=== PATIENT | female | born 1935 | race Two or more races ===

== ENCOUNTER 2019-05-24 22:44 | Emergency (ER) | payer OTHER ==
[~2019-05-24] VITALS: Ht 165.1 cm; Wt 80.3 kg
[2019-05-24 22:55] VITALS: BP 119/56
--- NOTE | 2019-05-24 22:58 | NUR ---
TO LOBBY A/W BED VIA WHEELCHAIR
--- NOTE | 2019-05-25 00:42 | NUR ---
PT TAKEN TO BED 03 VIA WHEELCHAIR.
--- NOTE | 2019-05-25 00:48 | NUR ---
84 YEAR OLD FEMALE COMPLAINS OF SEVERE BACK PAIN THAT RADIATES TO THE LEFT FOOT. PATIENTS SON STATES THAT SHE USUALLY HAS PAIN IN THE MORNING BUT TODAY IT LINGERED THROUGHOUT THE DAY. SON STATES PT HAS HAD LOWER BACK PAIN THAT RADIATES TO LEFT FOOT FOR THE PAST 2 YEARS, BUT TODAY MUCH MORE SEVERE. PATIENT AOX4, BREATHING EVEN AND UNLABORED, SKIN WARM AND DRY. BED IN LOWEST POSIITON, LOCKED, BED RAIL UPX1. ERMD AWARE OF STATUS. PMH - PACEMAKER, DM2, HTN ALLERGIES - NKA
--- NOTE | 2019-05-25 01:30 | NUR ---
PATIENT ALERT AND AWAKE, BREAHTING EVEN AND UNLABORED
[2019-05-25] MEDS ORDERED: KETOROLAC 60 MG/2 ML VIAL IM ONE (01:50)
[2019-05-25] MEDS ORDERED: MORPHINE SULFATE 4 MG/ML SYR IM ONE (02:55)
--- NOTE | 2019-05-25 03:30 | NUR ---
PATIENT ALERT AND AWAKE, BREAHTING EVEN AND UNLABORED
--- NOTE | 2019-05-25 05:00 | NUR ---
PATIENT ALERT AND AWAKE, BREAHTING EVEN AND UNLABORED
[2019-05-25 06:44] VITALS: BP 119/47
--- NOTE | 2019-05-25 06:44 | NUR ---
DISCHARGE DONE BY DR HECK. Patient discharged with v/s stable. Written and verbal after care instructions about chronic back pain given and explained to family. Patient verbalized understanding. Wheel Chair Assisted with to car. All questions addressed prior to discharge. Advised to follow up with PMD.
== END 2019-05-25 06:44 | disposition home or self-care (01) ==
LOC: MED 22:44
DX: M54.41 Lumbago with sciatica, right side (principal); M47.896 Other spondylosis, lumbar region; E11.9 Type 2 diabetes mellitus without complications; I10 Essential (primary) hypertension; Z95.0 Presence of cardiac pacemaker
CPT/HCPCS: 72131; 96372; 99284; J1885; J2270; 99285